=== PATIENT | female | born 1965 | race Caucasian/White ===

== ENCOUNTER 2018-08-07 08:59 | Outpatient (CLI) | payer OTHER ==
--- NOTE | 2018-08-07 11:28 | BD ---
DEXA BONE DENSITY EXAM: COMPARISON: None. HISTORY: A 52-year-old postmenopausal female for screening. FINDINGS: Lumbar Spine: BMD (g/cm2) L1 0.984 T-Score: -0.1 L2 0.958 T-Score: -0.6 L3 1.189 T-Score: 1.0 L4 1.139 T-Score: 0.7 L1-L4 1.080 T-Score: 0.3 Femoral Neck: 0.756 T-Score: -0.8 Total Femur: 0.916 T-Score: -0.2 Impression: Normal bone mineral density. This patient has a 10-year WHO fracture risk of a major osteoporotic fr acture of 9.8% and of a hip fracture 0.5%. POS: [facility]
== END 2018-08-07 09:00 | disposition home or self-care (01) ==
LOC: BICMAMMO 08:59
PROVIDERS: ATTEND Obstetrics & Gynecology
DX: Z12.31 Encounter for screening mammogram for malignant neoplasm of breast (principal); Z13.820 Encounter for screening for osteoporosis; Z80.3 Family history of malignant neoplasm of breast
CPT/HCPCS: 77063; 77067; 77080